=== PATIENT | male | born 1945 | race Caucasian/White ===

== ENCOUNTER → 2016-04-24 | Outpatient (REF) | payer MEDICARE, OTHER ==
[2016-04-24 13:48] LABS: CALCIUM LEVEL 8.7 MG/DL (8.8-10.2); CREATININE FOR GFR 1.49 MG/DL (0.70-1.30); GLOMERULAR FILTRATION RATE 49.9 (>49); POTASSIUM SERUM 4.4 MEQ/L (3.5-5.1)
== END ==
LOC: M LABDRAW1 09:25
PROVIDERS: ATTEND Physician Assistant Medical
DX: E11.65 Type 2 diabetes mellitus with hyperglycemia (principal); E78.00 Pure hypercholesterolemia, unspecified

== ENCOUNTER → 2016-06-14 | Outpatient (REF) | payer MEDICARE, OTHER ==
[2016-06-14 18:05] LABS: PERCENT SATURATION 17.5 % (19.7-37.4)
== END ==
LOC: M LAB REF 16:54
PROVIDERS: ATTEND Internal Medicine Nephrology
DX: D50.9 Iron deficiency anemia, unspecified (principal)

== ENCOUNTER → 2016-06-20 | Outpatient (CLI) | payer MEDICARE, OTHER ==
--- NOTE | 2016-06-20 10:56 | REP ---
Clinical: Chronic medical renal disease and possible nephrolithiasis. Technique: Real time velásquez scale ultrasound examination using curved array transducer. Findings: Bilateral kidneys are normal in reniform shape and echogenicity with increased central sinus fat consistent with chronic medical renal disease. No hydronephrosis, nephrolithiasis, cystic or renal mass lesion is appreciated. Right kidney measures 10.8 x 5.5 x 5.3 cm. Left kidney measures 12.0 x 4.9 x 5.4 cm. Evaluation of the bladder demonstrates 2 cm mobile bladder stone and normal bilateral ureteral jets. Impression: Evidence for chronic medical renal disease. No obvious nephrolithiasis or hydronephrosis. 2 cm mobile bladder stone. Signed by Naveen Vizcarra MD 06/20/2016 10:47 A
== END ==
LOC: M RAD 10:07
PROVIDERS: ATTEND Internal Medicine Nephrology
DX: N18.3 Chronic kidney disease, stage 3 (moderate) (principal); N20.0 Calculus of kidney; E11.22 Type 2 diabetes mellitus with diabetic chronic kidney disease

== ENCOUNTER 2016-07-12 10:51 | Emergency (ER) | payer MEDICARE, OTHER ==
[~2016-07-12] VITALS: Ht 180.3 cm; Wt 91.2 kg
[2016-07-12] MEDS ORDERED: SITA50TAB PO (11:16)
[2016-07-12] MEDS ORDERED: LISI-542 PO (11:16)
[2016-07-12] MEDS ORDERED: SERT50TA PO (11:16)
[2016-07-12] MEDS ORDERED: CARV6.25 PO (11:16)
[2016-07-12] MEDS ORDERED: POTASOL PO (11:16)
[2016-07-12] MEDS ORDERED: INSUHUMDS SC (11:16)
[2016-07-12] MEDS ORDERED: INSULANT SC (11:16)
[2016-07-12] MEDS ORDERED: ASPI1TAB PO (11:16)
[2016-07-12] MEDS ORDERED: ATOR1TAB18 PO (11:16)
[2016-07-12] MEDS ORDERED: VITA100037 PO (11:16)
[2016-07-12] MEDS ORDERED: NITR4TASL SL (11:16)
[2016-07-12] MEDS ORDERED: SILD25TA GT (11:16)
[2016-07-12] MEDS ORDERED: NITROGLYCERIN 0.4 MG SUBL TABLET SL PRN (11:45)
[2016-07-12] MEDS ORDERED: ASPIRIN 81 MG CHEW TABLET PO ONE (11:45)
--- NOTE | 2016-07-12 12:18 | REP ---
AP PORTABLE CHEST: 07/12/2016. Comparison: 04/22/2012. Clinical history: Chest pain. Findings: The lung de are well inflated and without infiltrate, effusion, atelectasis or mass. The heart, mediastinal and hilar contours are unchanged. Heart size borderline for this AP portable technique. The aorta is mildly tortuous at the arch but normal for age. Airway midline. There are degenerative changes throughout the thoracic spine and shoulders. Impression: 1. Borderline heart size but no acute cardiopulmonary change. Stable chest. Signed by Romain Montes MD 07/12/2016 01:46 P
[2016-07-12 12:21] VITALS: BP 120/60
[2016-07-12 12:53] LABS: BASO % 0.6 % (0.0-1.0); EOS # 0.2 K/mm3 (0.0-0.50); LARGE UNSTAINED CELL # 0.1 K/mm3 (0.0-0.4); LARGE UNSTAINED CELL % 1.8 % (0.0-4.0); LYMPH # 1.2 K/mm3 (1.5-4.5); LYMPH % 16.4 % (24.0-44.0); MEAN CORPUSCULAR HGB CONC 33.9 g/dl (32.0-36.5); MEAN CORPUSCULAR VOLUME 85.6 fl (80.0-96.0); MONO # 0.3 K/mm3 (0.0-0.8); MONO % 5.1 % (0.0-5.0); NEUTROPHILS # 4.7 K/mm3 (1.8-7.7); PLATELET COUNT, AUTOMATED 293 k/mm3 (150-450); RED CELL DISTRIBUTION WIDTH 13.7 % (11.5-14.5); WHITE BLOOD COUNT 6.5 K/mm3 (4.0-10.0)
[2016-07-12 13:08] LABS: ALBUMIN 3.5 GM/DL (3.2-5.2); ALBUMIN/GLOBULIN RATIO 0.97 (1.00-1.93); ALKALINE PHOSPHATASE 70 U/L (45-117); ALT/SGPT 31 U/L (12-78); ANION GAP 7 MEQ/L (8-16); AST/SGOT 16 U/L (15-37); BILIRUBIN,DIRECT < 0.1 MG/DL (0.0-0.2); BILIRUBIN,TOTAL 0.4 MG/DL (0.2-1.0); BLOOD UREA NITROGEN 34 MG/DL (7-18); CALCIUM LEVEL 8.8 MG/DL (8.8-10.2); CARBON DIOXIDE LEVEL 28 MEQ/L (21-32); CHLORIDE LEVEL 108 MEQ/L (98-107); CREATININE FOR GFR 1.76 MG/DL (0.70-1.30); GLOMERULAR FILTRATION RATE 41.2 (>49); GLUCOSE, FASTING 89 MG/DL (80-110); POTASSIUM SERUM 4.7 MEQ/L (3.5-5.1); SODIUM LEVEL 143 MEQ/L (136-145); TOTAL PROTEIN 7.1 GM/DL (6.4-8.2)
--- NOTE | 2016-07-12 14:03 | ECGEPIP ---
Stationary ECG Study [facility] - ED Test Date: 2016-07-12 Pat Name: SUSIE LAZARO Department: Room: - Gender: M Mammography Tech: rs : 1945 Requested By: Cory Kumar Order Number: [id number] Reading MD: Carola Cheng Measurements Intervals [place] Rate: 66 P: -5 [place]: 183 QRS: -37 QRSD: 94 T: 69 QT: 347 QTc: 365 Interpretive Statements SINUS RHYTHM INFERIOR MYOCARDIAL INFARCTION, PROBABLY OLD ANTEROSEPTAL MYOCARDIAL INFARCTION, OF INDETERMINATE AGE PRIOR 04/22/12 ANTEROSEPTAL NM Electronically Signed On 07-12-2016 13:52:45 EDT by Carola Cheng
--- NOTE | 2016-07-12 14:04 | ECGEPIP ---
Stationary ECG Study [facility] - ED Test Date: 2016-07-12 Pat Name: SUSIE LAZARO Department: Room: - Gender: M Brand Director: : 1945 Requested By: Cory Kumar Order Number: [id number] Reading MD: Carola Cheng Measurements Intervals [place] Rate: 56 P: -5 [place]: 181 QRS: -43 QRSD: 113 T: 63 QT: 380 QTc: 369 Interpretive Statements SINUS BRADYCARDIA INFERIOR MYOCARDIAL INFARCTION, PROBABLY OLD ANTEROSEPTAL MYOCARDIAL INFARCTION, OF INDETERMINATE AGE DECREASED RATE 07/12/16 11:10 Electronically Signed On 07-12-2016 14:03:56 EDT by Carola Cheng
[2016-07-12 16:59] VITALS: BP 137/75
--- NOTE | 2016-07-13 12:31 | ECGEPIP ---
Stationary ECG Study [facility] - ED Test Date: 2016-07-12 Pat Name: SUSIE LAZARO Department: Room: - Gender: M Special Needs Caregiver: livia : 1945 Requested By: Cory Kumar Order Number: [id number] Reading MD: Carola Cheng Measurements Intervals [place] Rate: 55 P: -11 [place]: 175 QRS: -42 QRSD: 105 T: 64 QT: 391 QTc: 376 Interpretive Statements SINUS BRADYCARDIA MARKED LEFT AXIS DEVIATION POSSIBLE INFERIOR MYOCARDIAL INFARCTION, PROBABLY OLD ANTEROSEPTAL MYOCARDIAL INFARCTION, OF INDETERMINATE AGE SIMILAR 07/12/16 Electronically Signed On 07-13-2016 12:31:37 EDT by Carola Cheng
== END 2016-07-12 17:20 | disposition home or self-care (01) ==
LOC: M ED 12:11
DX: I20.9 Angina pectoris, unspecified (principal); E11.9 Type 2 diabetes mellitus without complications; I12.9 Hypertensive chronic kidney disease with stage 1 through stage 4 chronic kidney disease, or unspecified chronic kidney disease; N18.9 Chronic kidney disease, unspecified; I25.2 Old myocardial infarction; Z95.5 Presence of coronary angioplasty implant and graft; Z79.899 Other long term (current) drug therapy; Z79.82 Long term (current) use of aspirin; Z79.4 Long term (current) use of insulin; Z79.84 Long term (current) use of oral hypoglycemic drugs

== ENCOUNTER → 2017-02-26 | Outpatient (REF) | payer MEDICARE, OTHER ==
[~2017-02-26] MED LIST: ASPI1TAB PO; ATOR80TA59 PO; CARV6.25 PO; INSUHUMDS SC; INSULANT SC; LISI-542 PO; NITR4TASL SL; POTASOL PO; SERT50TA PO; SILD25TA GT; SITA50TAB PO; VITA100067 PO
== END ==
LOC: M LAB REF 12:55
PROVIDERS: ATTEND Internal Medicine Nephrology
DX: N39.0 Urinary tract infection, site not specified (principal)

== ENCOUNTER → 2017-03-21 | Outpatient (REF) | payer MEDICARE, OTHER | LOC: M LAB REF 16:19 | PROVIDERS: ATTEND Physician Assistant | DX: R30.0 Dysuria (principal) ==

== ENCOUNTER 2017-05-06 07:03 | Emergency (ER) | payer MEDICARE, OTHER ==
[2017-05-06] MEDS: CEFAZOLIN SOD 1 GM in APPROPRIATE DILUENT 1 EA IV (08:09)
[2017-05-06] MEDS ORDERED: POLYSPORIN TOPICAL OINTMENT 15GM As Ordered (09:14)
== END 2017-05-06 09:35 | disposition home or self-care (01) ==
LOC: M ED 07:03
DX: S61.200A Unspecified open wound of right index finger without damage to nail, initial encounter (principal); W27.0XXA Contact with workbench tool, initial encounter; Y92.018 Other place in single-family (private) house as the place of occurrence of the external cause; E11.9 Type 2 diabetes mellitus without complications; N28.9 Disorder of kidney and ureter, unspecified; I25.2 Old myocardial infarction; I25.10 Atherosclerotic heart disease of native coronary artery without angina pectoris; M10.9 Gout, unspecified; Z95.5 Presence of coronary angioplasty implant and graft; Z79.899 Other long term (current) drug therapy; Z79.82 Long term (current) use of aspirin; Z79.4 Long term (current) use of insulin
CPT/HCPCS: J0690

== ENCOUNTER → 2017-07-27 | Outpatient (REF) | payer MEDICARE, OTHER | LOC: M LAB REF 16:56 | DX: R39.12 Poor urinary stream (principal) | CPT/HCPCS: 87086 ==

== ENCOUNTER → 2017-10-04 | Outpatient (CLI) | payer MEDICARE, OTHER | LOC: M RAD 09:19 | DX: N18.3 Chronic kidney disease, stage 3 (moderate) (principal); N40.1 Benign prostatic hyperplasia with lower urinary tract symptoms; N20.0 Calculus of kidney; R39.198 Other difficulties with micturition | CPT/HCPCS: 76775 ==

== ENCOUNTER 2019-05-23 13:18 | Inpatient (IN) | payer MEDICARE, OTHER ==
[2019-05-23] VITALS (24 sets, daily range): BP systolic 105–171; BP diastolic 55–90; O2SAT 100
[~2019-05-23] VITALS: Ht 180.3 cm; Wt 92.0 kg
[~2019-05-23 13:18] MED LIST changes: +ALLO100T PO; -ASPI1TAB PO; +ASPI81TA26 PO; +AUGM875T28 PO; +FERR325T3 PO; +SERT-141 PO; -SERT50TA PO; -SILD25TA GT; +SILD25TA PO; +lisinopriL 10 MG TAB PO SCH
[2019-05-23] MEDS ORDERED: MAGN400T3 PO (13:34)
[2019-05-23] MEDS ORDERED: TAMS1CAP17 PO (13:34)
[2019-05-23] MEDS ORDERED: ACETAMINOPHEN 500 MG TAB PO ONE (13:45)
--- NOTE | 2019-05-23 14:04 | REP ---
Clinical: Trauma. Technique: Axial noncontrast images from the thoracic inlet to the upper abdomen with coronal and sagittal re-formations. Findings: Small to moderate left pneumothorax is appreciated with very mild contralateral mediastinal shift. A very subtle nondisplaced lateral left seventh rib fracture cannot be excluded and should be correlated with mechanism of injury. The right hemithorax is well-aerated and clear. The mediastinum is essentially unremarkable and without evidence for mediastinal trauma/injury. Incidental atherosclerotic changes to the thoracic aorta and coronary arteries noted. Limited upper abdomen demonstrates small hiatal hernia and normal bilateral adrenal glands. Impression: Small/moderate left pneumothorax with very minimal contralateral mediastinal shift. Possible very subtle nondisplaced lateral left seventh rib fracture. Electronically Signed by Naveen Vizcarra MD 05/23/2019 01:55 P
--- NOTE | 2019-05-23 14:09 | REP ---
Clinical: Left shoulder trauma . Technique: Internal rotation, external rotation, and Y view. Findings: No acute fracture or dislocation. The acromioclavicular and glenohumeral joints are intact. Mild age-related degenerative changes noted. Impression: Normal age-appropriate left shoulder radiographs. Electronically Signed by Naveen Vizcarra MD 05/23/2019 02:01 P
[2019-05-23] MEDS ORDERED: BISACODYL 10 MG SUPP PR PRN (14:15)
[2019-05-23] MEDS ORDERED: LEVALBUTEROL 1.25 MG/0.5 ML CONCENTRATE NEB NEB PRN (14:15)
[2019-05-23] MEDS ORDERED: ONDANSETRON 4MG/2ML VIAL (J2405) IV ONE (14:15)
[2019-05-23] MEDS ORDERED: PERCOCET 5MG/325MG TAB PO PRN (14:15)
[2019-05-23] MEDS ORDERED: NORCO, ANEXSIA 5/325MG TABLET (HYDROcodone/ACETAMINOPHEN) PO PRN (14:15)
[2019-05-23] MEDS ORDERED: MORPHINE 4 MG/ML 1ML VIAL/SYRINGE (J2270) IV PRN (14:15)
[2019-05-23] MEDS ORDERED: ONDANSETRON 4MG/2ML VIAL (J2405) IV PRN (14:15)
[2019-05-23 14:54] LABS: BASO # 0.1 10^3/uL (0.0-0.2); BASO % 0.3 % (0.0-1.0); EOS # 0.2 10^3/uL (0.0-0.5); EOS % 1.3 % (0.0-3.0); HEMATOCRIT 40.5 % (42.0-52.0); HEMOGLOBIN 13.3 g/dl (13.5-17.5); LYMPH # 1.2 10^3/uL (1.5-5.0); LYMPH % 7.8 % (24.0-44.0); MEAN CORPUSCULAR HGB CONC 32.8 g/dl (32.0-36.5); MEAN CORPUSCULAR VOLUME 88.4 fl (80.0-96.0); MONO # 0.8 10^3/uL (0.0-0.8); MONO % 5.5 % (0.0-5.0); NEUTROPHILS # 12.4 10^3/uL (1.5-8.5); NEUTROPHILS % 83.3 % (36.0-66.0); PLATELET COUNT, AUTOMATED 302 10^3/uL (150-450); RED BLOOD COUNT 4.58 10^6/uL (4.30-6.10); WHITE BLOOD COUNT 14.9 10^3/uL (4.0-10.0)
[2019-05-23] MEDS ORDERED: KCL 20MEQ IN D5/NS 1000ML 1,000 ML IV SCH (15:00)
[2019-05-23] MEDS ORDERED: NITROGLYCERIN 0.4 MG SUBL TABLET SL SCH (15:00)
[2019-05-23] MEDS ORDERED: MIDAZOLAM INJ 2 MG/2 ML VIAL (J2250) As Ordered ONE (15:03)
[2019-05-23] MEDS ORDERED: flumazeniL 0.5 MG/5 ML VIAL As Ordered ONE (15:04)
[2019-05-23] MEDS ORDERED: LIDOCAINE 1% MDV 20ML VIAL As Ordered ONE (15:05)
[2019-05-23] MEDS ORDERED: LISI10TA4 PO (15:05)
[2019-05-23] MEDS ORDERED: SERT-138 PO (15:05)
[2019-05-23] MEDS ORDERED: AUGM875T28 PO (15:05)
[2019-05-23 15:08] LABS: PROTHROMBIN TIME 12.9 SECONDS (11.8-14.0)
[2019-05-23] MEDS ORDERED: MORPHINE 2 MG/ML 1ML VIAL (J2270) As Ordered ONE (15:13)
[2019-05-23 15:14] LABS: ALBUMIN 3.6 GM/DL (3.2-5.2); BILIRUBIN,TOTAL 0.4 MG/DL (0.2-1.0); CALCIUM LEVEL 9.1 MG/DL (8.8-10.2); CREATININE FOR GFR 1.55 MG/DL (0.70-1.30); GLOMERULAR FILTRATION RATE 47.3 (>42); POTASSIUM SERUM 5.2 MEQ/L (3.5-5.1); TOTAL PROTEIN 6.8 GM/DL (6.4-8.2)
[2019-05-23] MEDS ORDERED: GLUCAGON FOR INJ 1 MG VIAL (J1610) SC PRN (15:15)
[2019-05-23] MEDS ORDERED: GLUCOSE 4 GM CHEW TABLET PO PRN (15:15)
[2019-05-23] MEDS ORDERED: DEXTROSE 50% 50 ML SYRINGE IV PRN (15:15)
[2019-05-23] MEDS ORDERED: NS 1,000 ML IV SCH (15:45)
--- NOTE | 2019-05-23 16:01 | REP ---
Clinical: Status post chest tube. Correlation: Chest CT dated 05/23/2019 at 13 41. Findings: Chest tube overlies the left apex and no obvious residual pneumothorax is identified. The mediastinum and cardiac silhouette are normal in appearance and position. The lung de are relatively clear and without focal consolidation or effusion. Skeletal structures appear intact. Impression: 1. Chest tube overlies the left apex. No residual pneumothorax identified. Electronically Signed by Naveen Vizcarra MD 05/23/2019 03:53 P
--- NOTE | 2019-05-23 16:02 | RO ---
DATE OF PROCEDURE: 05/23/2019 PREPROCEDURE DIAGNOSIS: Traumatic pneumothorax left. POSTPROCEDURE DIAGNOSIS: Traumatic pneumothorax left. PROCEDURE: Insertion of anterior superior chest tube with moderate sedation. SURGEON: Jt Youngblood MD RADIO DIVISION OFFICER: ANESTHESIA: DESCRIPTION OF PROCEDURE: Under moderate sedation achieved with 4 mg of Versed the patient was prepped and draped in the usual sterile fashion. We also had given him 5 mg of morphine approximately 5 minutes prior to the procedure. The first intercostal space above the second rib was infiltrated with 1% lidocaine down to the pleura. An incision was made and a tunnel was created into the chest with a large gush of air emanating once getting into the chest. A #20 chest tube was placed without difficulty and secured to the chest wall with #2 Tevdek suture. Tube was connected to the Pleur-evac. The patient tolerated the procedure well, and a chest x-ray is pending.
[2019-05-23] MEDS: MAGNESIUM OXIDE 400 MG TAB (MAG-OX) PO SCH (16:03)
[2019-05-23] MEDS: ASPIRIN 81 MG ENTERIC TAB PO SCH (16:03)
[2019-05-23] MEDS: PANTOPRAZOLE 40MG TAB (PROTONIX) PO SCH (16:04)
--- NOTE | 2019-05-23 16:04 | HPEPDOC ---
General Date of Admission May 23, 2019 at 14:09 Date of Service: May 23, 2019 Chief Complaint The patient is a 73-year-old male admitted with a reason for visit of Pneumothorax. Source: Patient Exam Limitations: No limitations Timing/Duration: 4-6 hours Severity: Moderate Associated Symptoms: Shortness of breath History of Present Illness Patient is 73 years old male with past history of hypertension, CO status post stent placement in 2013, type 2 diabetes, hyperlipidemia presented hospital after mechanical fall. Patient stated he fell down because of ice on the road. After after that he developed left-sided chest pain with progressively increased shortness of breath. In ER patient was found to have Small/moderate left pneumothorax with very minimal contralateral mediastinal shift. Possible very subtle nondisplaced lateral left seventh rib fracture. Patient was brought to ICU, chest tube was placed by Dr. Youngblood. Home Medications Scheduled Allopurinol (Allopurinol) 100 Mg Tab, 100 MG PO QHS, (Reported) Amoxicillin/Potassium Clav (Augmentin 875-125 Tablet) 1 Each Tablet, 1 TAB PO BID, (Reported) FILLED 05/15/19 FOR 10 DAYS Aspirin (Aspirin EC) 81 Mg Tab, 81 MG PO DAILY, (Reported) Atorvastatin Calcium (Atorvastatin Calcium) 80 Mg Tab, 80 MG PO QHS, (Reported) Insulin Glargine (Lantus) 1 Units/0.01 Ml Susp, 43 UNITS SC DAILY, (Reported) Insulin Human Lispro (Humalog) 1 Units/0.01 Ml Inj, 1 DOSE SC AC, (Reported) PER SLIDING SCALE Lisinopril (Lisinopril) 10 Mg Tablet, 10 MG PO QHS, (Reported) Magnesium Oxide (Magnesium Oxide) 400 Mg Tablet, 400 MG PO DAILY, (Reported) Potassium Citrate/Citric Acid (Potassium Cit-Citric Acid Soln) 1 Aby Aby, 10 ML PO BID, (Reported) Sertraline HCl (Sertraline HCl) 100 Mg Tablet, 100 MG PO DAILY, (Reported) Sitagliptin (Januvia) 50 Mg Tab, 50 MG PO DAILY, (Reported) Tamsulosin Hcl (Tamsulosin HCl) 0.4 Mg Capsule, 0.4 MG PO DAILY, (Reported) Scheduled PRN Nitroglycerin (Nitrostat) 0.4 Mg Subl, 0.4 MG SL NITRO PRN for CHEST PAIN, (Reported) Sildenafil Citrate (Viagra) 25 Mg Tab, 25 MG PO DAILY PRN for ERECTILE DYSFUNCTION, (Reported) Allergies Coded Allergies: No Known Allergies (Unverified , 07/12/16) Past Medical History Medical History hypertension, CO status post stent placement in 2012, type 2 diabetes, hyperlipidemia Surgical History None Family History I personally reviewed Family History and found not pertinent Social History * Smoker: Denies Alcohol: Denies Drugs: denies A-FIB/CHADSVASC A-FIB History Current/History of A-Fib/PAF?: No Current PO Anticoag Therapy: No Review of Systems Constitutional: Denies: Chills, Fever Eyes: Denies: Pain, Vision change ENT: Denies: Head Aches Skin: Denies: Rash, Lesions Pulmonary: Reports: Dyspnea, Pleuritic Chest Pain Cardiovascular: Denies: Chest Pain, Palpitations Gastrointestinal: Denies: Nausea, Vomiting Genitourinary: Denies: Dysuria Hematologic: Denies: Bruising, Bleeding Excessively Endocrine: Denies: Polydipsia, Polyphagia Musculoskeletal: Denies: Neck Pain, Back Pain Neurological: Denies: Weakness Psych: Reports: Mood Normal Physical Examination General Exam: Positive: Alert, Cooperative Eye Exam: Positive: PERRLA, Conjunctiva & lids normal ENT Exam: Positive: Atraumatic Neck Exam: Positive: Supple; Negative: JVD Chest Exam: Positive: Diminished (over left upper lung field); Negative: Clear to auscultation Heart Exam: Positive: Rate Normal Telemetry: Positive: No significant arrhythmia Abdomen Exam: Positive: Normal bowel sounds Extremity Exam: Negative: Clubbing, Cyanosis Skin Exam: Positive: Nl turgor and temperature Neuro Exam: Positive: Normal Speech, Strength at 5/5 X4 ext, Cranial Nerves 3- 12 NL Psych Exam: Positive: Mental status NL Vital Signs Vital Signs Date Time Temp Pulse Resp B/P (MAP) Pulse Ox O2 Delivery O2 Flow Rate FiO2 05/23/19 14:33 75 159/88 (111) 98 Room Air 05/23/19 13:27 98.4 18 Laboratory Data Labs 24H Laboratory Tests 2 05/23/19 14:37: Immature Granulocyte % (Auto) 1.8, Neutrophils (%) (Auto) 83.3H, Lymphocytes (%) (Auto) 7.8L, Monocytes (%) (Auto) 5.5H, Eosinophils (%) (Auto) 1.3, Basophils (%) (Auto) 0.3, Neutrophils # (Auto) 12.4H, Lymphocytes # (Auto) 1.2L, Monocytes # (Auto) 0.8, Eosinophils # (Auto) 0.2, Basophils # (Auto) 0.1, Nucleated Red B lood Cells % (auto) 0.0, Prothrombin Time 12.9, Prothromb Time International Ratio 1.00, Anion Gap 3L, Glomerular Filtration Rate 47.3, Calcium Level 9.1, Total Bilirubin 0.4, Aspartate Amino Transf (AST/SGOT) 22, Alanine Aminotransferase (ALT/SGPT) 37, Alkaline Phosphatase 72, Total Protein 6.8, Al bumin 3.6, Albumin/Globulin Ratio 1.13 CBC/BMP Laboratory Tests 05/23/19 14:37 Assessment/Plan Patient is 73 years old male with past history of hypertension, CO status post stent placement in 2012, type 2 diabetes, hyperlipidemia presented hospital after mechanical fall. Patient stated he fell down because of ice on the road. After after that he developed left-sided chest pain with progressively increased shortness of breath. In ER patient was found to have Small/moderate left pneumothorax with very minimal contralateral mediastinal shift. Possible very subtle nondisplaced lateral left seventh rib fracture. Patient was brought to ICU, chest tube was placed by Dr. Youngblood. Problems (1) Pneumothorax Status: Acute Problem Text: Secondary to mechanical fall Chest tube was placed Dr. Youngblood follows patient Pain management (2) Diabetes mellitus Status: Chronic Problem Text: Insulin sliding scale Diabetes diet Detemir twice a day (3) Hypertension Status: Chronic Problem Text: Blood pressures under control Continue home cardioprotective medication (4) CKD (chronic kidney disease) Status: Chronic Problem Text: Stage III Creatinine at his baseline Plan / VTE VTE Prophylaxis Ordered?: Yes SILVERIO KENYON DO May 23, 2019 16:04
[2019-05-23] MEDS: SERTRALINE 100 MG TAB PO SCH (16:05)
[2019-05-23] MEDS: PERCOCET 5MG/325MG TAB PO PRN ×2 (16:05→20:22)
[2019-05-23] MEDS: TAMSULOSIN 0.4 MG CAP PO SCH (16:07)
--- NOTE | 2019-05-23 16:55 | CR ---
DATE OF CONSULTATION: 05/23/2019 The patient is seen at the request of Dr. Crane of the emergency room and the hospitalist service for pneumothorax and a possible rib fracture with shortness of breath. HISTORY OF PRESENT ILLNESS: The patient is a 73-year-old white male who was out feeding and taking care of his horses today when he slipped on ice. He fell down and hit his left chest when he felt sudden onset of shortness of breath along with severe chest pain. Prior to this, the last 2 months, he has had a dry, nonproductive cough, which has been treated with antibiotics. He states that the cough has gotten a bit better with the antibiotics but continues to return. Prior to the episode today, he did not complain of chest pain. He has had no fever, chills, or sweats. He sometimes chokes on his food and sometimes has difficulty swallowing as if he has a continued ball of phlegm in the back of his throat. He was brought to the emergency room where he was found to have a 20-30% pneumothorax. PAST MEDICAL HISTORY: Diabetes. Hypertension. Status post a myocardial infarction in 2012. Hyperlipidemia. Renal stones. Asthma. Chronic renal failure. PAST SURGERIES: Cardiac stents in 2012. Appendectomy in the remote past. 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 HABITS: Does not smoke, does not drink, and does not use illicit drugs. EXPOSURES: No dogs, birds, or cats at home and in particular, no chickens. No exposure to tuberculosis. ALLERGIES: None. FAMILY HISTORY: Not pertinent to the acute situation. REVIEW OF SYSTEMS: Constitutional: See history of the present illness. Has maintained his weight. Eyes: Without diplopia, without amaurosis fugax, without prior jaundice. Nose: With an occasional nose bleed. Mouth: Has his own teeth. Respiratory: See history of the present illness. Cardiac: See history of the present illness. Without orthopnea or paroxysmal nocturnal dyspnea. Without peripheral edema. Gastrointestinal (GI): Without nausea, vomiting, diarrhea, constipation, melena, hematochezia, hematemesis, or abdominal pain. Genitourinary (): Without hematuria, dysuria, but has had renal stones in the past. Endocrine: With diabetes. Without known thyroid disease. Neurologic: Without seizures, paresthesias, paralyses, or strokes. Psychiatric: Without pathological anxieties, depressions, or psychoses. PHYSICAL EXAMINATION: VITAL SIGNS: Temperature is 98.4, heart rate is 77, respiratory rate is 18 without the use of accessory muscles. He is 96% saturated on room air, and his blood pressure is 159/88. EYES: Pupils equal, round and reactive to light. Extraocular motor intact. Sclerae nonicteric. NOSE: Without deformity. HEAD: Normocephalic. MOUTH: Shows his mucous membranes to be pink and moist. Lips and commissures without lesions. There is no thrush. Teeth are in good repair. NECK: Neck is supple. There is no jugular venous distention. No subcutaneous emphysema. Trachea is midline. There is no thyromegaly, lymphadenopathy. He has 2+ carotid upstrokes without bruits. LUNGS: Show markedly decreased breath sounds on the left side. Percussion note is full to the diaphragm on either side. CARDIAC: Exam is without murmurs, clicks, gallops or rubs. I cannot feel his point of maximum impulse (PMI). S1, S2 are normal. ABDOMEN: Soft, nontender. Bowel sounds are positive. There is no hepatomegaly. No costovertebral angle tenderness. EXTREMITIES: Show no pretibial edema, no calf tenderness. No differential swelling of the upper extremities. SKIN: Warm, dry and perfused without cyanosis or mottling, including that of the nail beds and the knees. NEUROLOGIC: Shows II-XII intact along with gross motor and gross sensation intact. Gait is not tested. PSYCHIATRIC: Shows him to be awake and alert, oriented times three with appropriate mood and affect and conversational. His white count today is 14.9 with a hemoglobin and hematocrit of 13.3 and 40.5 respectively with a platelet count of 302. Differential shows 83% neutrophils, 7% lymphocytes, 5% monocytes. There are no immature forms. No toxic granulations. His electrolytes show marginally high potassium of 5.2. The remainder of his electrolytes are normal. BUN and creatinine are 29 and 1.55. Calcium is 9.1 with a glucose of 191. AST and ALT are normal, and the albumin is 3.6. PT/INR 12.9 and 1.0 respectively. His chest x-ray has not been done. His chest CT shows a 20-30% pneumothorax. I on first perusal of the x-ray did not see a fractured rib. X-ray is calling a "possible very subtle nondisplaced lateral left seventh rib fracture." That is an understatement. I am not at all convinced it is a rib fracture. His lung parenchyma is intact. I see no mediastinal lymphadenopathy. There is a mediastinal shift to the right. The adrenals have a normal configuration, and I do not see any liver lesions. IMPRESSION: 1. Traumatic pneumothorax. 2. Possible 7th rib fracture. 3. Increased pain needing pain control. 4. Diabetes. 5. Status post myocardial infarction with coronary artery disease, status post stenting. 6. Hypertension. 7. Chronic renal insufficiency. PLAN AND DISCUSSION: I will immediately place an anterior-superior chest tube. After doing so, we will place the tube on suction and follow him the next couple of days. I will probably end up putting him on a patient-controlled analgesia (SAND SIFTER) pump.
[2019-05-23 17:47] LABS: ABG BASE EXCESS 0.2 (-2.0-2.0); ABG HCO3 25.4 MEQ/L (22.0-26.0); ABG PARTIAL PRESSURE CO2 43.2 mmHg (35.0-45.0); ABG PARTIAL PRESSURE O2 84.2 mmHg (75.0-100.0); ABG STANDARD HCO3 24.6 MEQ/L (22.0-26.0); ABG TOTAL CO2 26.7 MEQ/L (23.0-31.0); ABG pH (ARTERIAL) 7.387 UNITS (7.350-7.450)
[2019-05-23] MEDS ORDERED: MORPHINE 10 MG/ML 1ML VIAL (J2270) IV ONE (18:15)
[2019-05-23] MEDS ORDERED: MIDAZOLAM INJ 2 MG/2 ML VIAL (J2250) IV ONE (18:15)
[2019-05-23] MEDS ORDERED: LIDOCAINE 1% MDV 20ML VIAL SC ONE (18:15)
[2019-05-23] MEDS: HumaLOG INSULIN (NovoLOG) PER UNIT SC SCH ×2 (18:16→20:20)
[2019-05-23] MEDS: LEVALBUTEROL 1.25 MG/0.5 ML CONCENTRATE NEB NEB SCH (20:12)
[2019-05-23] MEDS: LEVEMIR (INSULIN DETEMIR) 1 UNITS/0.01ML SC SCH (20:20)
[2019-05-23] MEDS: allopurinoL 100 MG TAB PO SCH (20:21)
[2019-05-23] MEDS: AUGMENTIN 875 MG TAB PO SCH (20:21)
[2019-05-23] MEDS: DOCUSATE SODIUM 100 MG CAP PO SCH (20:21)
[2019-05-23] MEDS: ATORVASTATIN 20 MG TAB PO SCH (20:21)
[2019-05-23] MEDS: HEPARIN SOD (PORCINE) 5000 UNITS/ML VIAL (J1644 PER 1000UNITS) SC SCH (20:22)
[2019-05-24] VITALS (7 sets, daily range): BP systolic 105–137; BP diastolic 58–72; O2SAT 99
[2019-05-24] MEDS: LEVALBUTEROL 1.25 MG/0.5 ML CONCENTRATE NEB NEB SCH ×4 (02:08→20:28)
[2019-05-24] MEDS: ACETAMINOPHEN TAB 650MG DOSE (2X325MG) PO PRN ×3 (04:23→22:15)
[2019-05-24 05:26] LABS: BASO % 0.2 % (0.0-1.0); EOS # 0.1 10^3/uL (0.0-0.5); EOS % 0.9 % (0.0-3.0); HEMATOCRIT 34.6 % (42.0-52.0); HEMOGLOBIN 11.4 g/dl (13.5-17.5); LYMPH # 1.2 10^3/uL (1.5-5.0); MEAN CORPUSCULAR HEMOGLOBIN 29.5 pg (27.0-33.0); MEAN CORPUSCULAR HGB CONC 32.9 g/dl (32.0-36.5); MEAN CORPUSCULAR VOLUME 89.4 fl (80.0-96.0); MONO # 0.8 10^3/uL (0.0-0.8); MONO % 7.2 % (0.0-5.0); NEUTROPHILS # 8.9 10^3/uL (1.5-8.5); NEUTROPHILS % 79.9 % (36.0-66.0); PLATELET COUNT, AUTOMATED 245 10^3/uL (150-450); RED BLOOD COUNT 3.87 10^6/uL (4.30-6.10); WHITE BLOOD COUNT 11.2 10^3/uL (4.0-10.0)
[2019-05-24 05:39] LABS: ABG BASE EXCESS 1.4 (-2.0-2.0); ABG HCO3 26.7 MEQ/L (22.0-26.0); ABG O2 SATURATION 98.1 % (95.0-99.0); ABG PARTIAL PRESSURE CO2 45.1 mmHg (35.0-45.0); ABG PARTIAL PRESSURE O2 131.9 mmHg (75.0-100.0); ABG STANDARD HCO3 25.8 MEQ/L (22.0-26.0); ABG TOTAL CO2 28.1 MEQ/L (23.0-31.0); ABG pH (ARTERIAL) 7.391 UNITS (7.350-7.450)
[2019-05-24 05:46] LABS: CALCIUM LEVEL 7.9 MG/DL (8.8-10.2); CREATININE FOR GFR 1.66 MG/DL (0.70-1.30); GLOMERULAR FILTRATION RATE 43.7 (>42); POTASSIUM SERUM 4.5 MEQ/L (3.5-5.1)
--- NOTE | 2019-05-24 08:16 | REP ---
PA and lateral chest: Comparison is the portable chest dated 05/23/2019. The left thoracotomy tube is unchanged. There is no pneumothorax or pleural fluid collection. There is focal atelectasis inferiorly in the right lung. There are lung de otherwise clear. Cardiac size is enlarged, unchanged. The mylene, mediastinum, skeletal structures are unremarkable. Impression: Minor atelectasis inferiorly in the right lung. No other interval change. Electronically Signed by Papi Paulino MD 05/24/2019 08:08 A
[2019-05-24] MEDS: DOCUSATE SODIUM 100 MG CAP PO SCH ×2 (08:32→20:07)
[2019-05-24] MEDS: PANTOPRAZOLE 40MG TAB (PROTONIX) PO SCH (08:32)
[2019-05-24] MEDS: ASPIRIN 81 MG ENTERIC TAB PO SCH (08:32)
[2019-05-24] MEDS: SERTRALINE 100 MG TAB PO SCH (08:32)
[2019-05-24] MEDS: TAMSULOSIN 0.4 MG CAP PO SCH (08:32)
[2019-05-24] MEDS: AUGMENTIN 875 MG TAB PO SCH (08:32)
[2019-05-24] MEDS: MAGNESIUM OXIDE 400 MG TAB (MAG-OX) PO SCH (08:32)
[2019-05-24] MEDS: LEVEMIR (INSULIN DETEMIR) 1 UNITS/0.01ML SC SCH ×2 (08:33→20:09)
[2019-05-24] MEDS: HEPARIN SOD (PORCINE) 5000 UNITS/ML VIAL (J1644 PER 1000UNITS) SC SCH ×2 (08:33→20:02)
[2019-05-24] MEDS: HumaLOG INSULIN (NovoLOG) PER UNIT SC SCH ×4 (08:33→20:02)
[2019-05-24] MEDS: MOM 30ML SUSPENSION UDC PO SCH (09:00)
--- NOTE | 2019-05-24 10:50 | IPNPDOC ---
Text Note Date of Service The patient was seen on 05/24/19. NOTE Subjective: No any acute events overnight. Patient denied fever, chills, nausea, vomiting. He complains of discomfort in the chest tube area Physical Examination General Exam: Positive: Alert, Cooperative Eye Exam: Positive: PERRLA, Conjunctiva & lids normal ENT Exam: Positive: Atraumatic Neck Exam: Positive: Supple; Negative: JVD Chest Exam: Positive: Diminished (over left upper lung field); chest tube in place, serosanguineous discharge on suction Negative: Clear to auscultation Heart Exam: Positive: Rate Normal Telemetry: Positive: No significant arrhythmia Abdomen Exam: Positive: Normal bowel sounds Extremity Exam: Negative: Clubbing, Cyanosis Skin Exam: Positive: Nl turgor and temperature Neuro Exam: Positive: Normal Speech, Strength at 5/5 X4 ext, Cranial Nerves 3- 12 NL Psych Exam: Positive: Mental status NL Assessment/Plan Patient is 73 years old male with past history of hypertension, [place] status post stent placement in 2012, type 2 diabetes, hyperlipidemia presented hospital after mechanical fall. Patient stated he fell down because of ice on the road. After after that he developed left-sided chest pain with progressively increased shortness of breath. In ER patient was found to have Small/moderate left pneumothorax with very minimal contralateral mediastinal shift. Possible very subtle nondisplaced lateral left seventh rib fracture. Patient was brought to ICU, chest tube was placed by Dr. Youngblood. Problems (1) Pneumothorax Secondary to mechanical fall Chest tube was placed on 05/23/19. Chest x-ray on 05/24/[address] Youngblood follows patient Pain management (2) Diabetes mellitus Insulin sliding scale Diabetes diet Detemir twice a day (3) Hypertension Blood pressures under control Continue home cardioprotective medication (4) CKD (chronic kidney disease) Stage III Creatinine at his baseline Plan / VTE VTE Prophylaxis Ordered?: Yes VS,Fishbone, I+O VS, Fishbone, I+O Laboratory Tests 05/23/19 14:37 05/24/19 05:07 Vital Signs Date Time Temp Pulse Resp B/P (MAP) Pulse Ox O2 Delivery O2 Flow Rate FiO2 05/24/19 08:00 97.2 64 14 131/63 (85) 97 Nasal Cannula 05/24/19 04:00 1.0 I&O- Last 24 Hours up to 6 AM 05/24/19 06:00 Intake Total 2250 ml Output Total 755 ml Balance 1495 ml SILVERIO KENYON DO May 24, 2019 10:50
--- NOTE | 2019-05-24 13:53 | IPN ---
DATE: 05/24/2019 Mr. Nielsen is feeling much better today, in fact his pain is almost nonexistent. I think that the pain yesterday was secondary to his lung coming away from the chest wall rather than the supposed rib fracture. His vital signs show a maximum temperature (t-max) of 98.7 with a heart rate that ranges between 67 and 68 in a sinus rhythm, respiratory rate of 16 to 18 without the use of accessory muscles, who is 99% saturated on 2 liters nasal cannula. His blood pressure is ranging between 105/61 to 131/63. His intake and output the past 24 hours has been recorded as 1530 in and 330 out for a positivity of 1200 mL. He has put out 5 mL in chest tube. He is reported as only putting out 325 mL in urine. His weight today is 91.7 compared to 89.1 kg yesterday. PHYSICAL EXAMINATION: LUNGS: He has some crackles at both bases, more on the left than the right. These occur during inspiration. There is also some expiratory wheezing. Percussion note is full to the diaphragm. CARDIAC EXAM: Shows a 2/6 systolic ejection murmur heard best at the right upper sternal border. There is no radiation. I cannot feel his point of maximum impulse (PMI). S1, S2 are normal. ABDOMEN: Soft, nontender. Bowel sounds positive. There is no hepatomegaly. No costovertebral angle tenderness. EXTREMITIES: Trace pretibial edema. No calf tenderness. No differential swelling of the upper extremities. SKIN: Warm, dry and perfused without cyanosis or mottling, including that of the nail beds and knees. NECK: Supple. There is no jugular venous distention. No subcutaneous emphysema. Trachea is midline. MOUTH: Shows his mucous membranes to be pink and moist. Lips and commissures without lesions. There is no thrush. EYES: Show his pupils to be equal and reactive. Extraocular motion intact. Sclerae anicteric. NEUROLOGIC: Shows II through XII intact with gross motor and gross sensation intact. Gait is not tested. PSYCHIATRIC: Shows him to be awake and alert, oriented times three with appropriate mood and affect and conversational. His white count today is 11.2 with a hemoglobin and hematocrit of 11.4 and 34.6, respectively and a platelet count of 245. Differential shows 79% neutrophils, 11% lymphocytes, and 7% monocytes. There are no immature forms and no toxic granulations. His electrolytes are normal with a BUN and creatinine of 32 and 1.66, however, up from 29 and 1.55. Glucose is 206 with a calcium of 7.9. His chest x-ray today shows his lung fully expanded to the chest wall. Chest tubes are in good place. The lateral film does not show any infiltrates. Costophrenic angles are sharp. IMPRESSION: 1. Traumatic pneumothorax. 2. Possible 7th rib fracture but doubtful. 3. Increased pain, resolved. 4. Diabetes. 5. Chronic renal insufficiency. 6. Coronary artery disease, status post myocardial infarction in 2013. 7. Hypertension. 8. Hyperlipidemia. PLAN/DISCUSSION: I will take his chest tube off suction today. Hopefully I will be able to pull it tomorrow and either discharge him later on in the day or on the next day. I am a little bit concerned about his lack of urine output and his rising BUN and creatinine. I will leave that to the medical service. He had a chronic cough even before this admission. When he comes back to see me, I will also ask pulmonology to evaluate his cough. It has been treated with antibiotics multiple times to no avail. He has never been a smoker and his lung parenchyma look intact without emphysematous changes. I do not see any lung masses nor do I see mediastinal or hilar lymphadenopathy. I will stop his antibiotics, which was carried over from his admission.
[2019-05-24] MEDS: allopurinoL 100 MG TAB PO SCH (20:07)
[2019-05-24] MEDS: ATORVASTATIN 20 MG TAB PO SCH (20:08)
[2019-05-24] MEDS ORDERED: lisinopriL 10 MG TAB PO SCH (21:00)
[2019-05-25] VITALS: BP 132/74
[2019-05-25] MEDS: LEVALBUTEROL 1.25 MG/0.5 ML CONCENTRATE NEB NEB SCH ×3 (02:30→13:24)
[2019-05-25 04:00] VITALS: BP 119/58
[2019-05-25 05:17] LABS: BASO % 0.3 % (0.0-1.0); EOS # 0.2 10^3/uL (0.0-0.5); EOS % 2.1 % (0.0-3.0); HEMATOCRIT 35.3 % (42.0-52.0); HEMOGLOBIN 11.4 g/dl (13.5-17.5); LYMPH # 1.3 10^3/uL (1.5-5.0); LYMPH % 15.3 % (24.0-44.0); MEAN CORPUSCULAR HEMOGLOBIN 28.9 pg (27.0-33.0); MEAN CORPUSCULAR HGB CONC 32.3 g/dl (32.0-36.5); MEAN CORPUSCULAR VOLUME 89.4 fl (80.0-96.0); MONO # 0.7 10^3/uL (0.0-0.8); MONO % 8.2 % (0.0-5.0); NEUTROPHILS # 6.3 10^3/uL (1.5-8.5); NEUTROPHILS % 73.1 % (36.0-66.0); PLATELET COUNT, AUTOMATED 228 10^3/uL (150-450); RED BLOOD COUNT 3.95 10^6/uL (4.30-6.10); WHITE BLOOD COUNT 8.6 10^3/uL (4.0-10.0)
[2019-05-25 05:38] LABS: CALCIUM LEVEL 8.3 MG/DL (8.8-10.2); CREATININE FOR GFR 1.65 MG/DL (0.70-1.30); POTASSIUM SERUM 4.3 MEQ/L (3.5-5.1)
[2019-05-25] MEDS: ACETAMINOPHEN TAB 650MG DOSE (2X325MG) PO PRN (05:52)
[2019-05-25 07:35] VITALS: BP 117/69
[2019-05-25] MEDS ORDERED: NS 1,000 ML IV SCH (08:00)
--- NOTE | 2019-05-25 08:20 | REP ---
PA and lateral chest: Comparison is 05/24. The left thoracotomy tube is unchanged. There is no pneumothorax. The focal atelectasis inferiorly in the right lung has decreased. Lung de otherwise clear. Cardiac size is enlarged, unchanged. The mylene, mediastinum, skeletal structures are unremarkable. Impression: The focal atelectasis inferiorly in the right lung has decreased. There is no other interval change. Electronically Signed by Papi Paulino MD 05/25/2019 08:11 A
[2019-05-25] MEDS: HumaLOG INSULIN (NovoLOG) PER UNIT SC SCH ×2 (08:28→12:59)
[2019-05-25] MEDS: LEVEMIR (INSULIN DETEMIR) 1 UNITS/0.01ML SC SCH (08:29)
[2019-05-25] MEDS: PANTOPRAZOLE 40MG TAB (PROTONIX) PO SCH (08:29)
[2019-05-25] MEDS: HEPARIN SOD (PORCINE) 5000 UNITS/ML VIAL (J1644 PER 1000UNITS) SC SCH (08:29)
[2019-05-25] MEDS: TAMSULOSIN 0.4 MG CAP PO SCH (08:29)
[2019-05-25] MEDS: ASPIRIN 81 MG ENTERIC TAB PO SCH (08:29)
[2019-05-25] MEDS: SERTRALINE 100 MG TAB PO SCH (08:29)
[2019-05-25] MEDS: MAGNESIUM OXIDE 400 MG TAB (MAG-OX) PO SCH (08:29)
[2019-05-25] MEDS: DOCUSATE SODIUM 100 MG CAP PO SCH (09:00)
[2019-05-25] MEDS: MOM 30ML SUSPENSION UDC PO SCH (09:00)
--- NOTE | 2019-05-25 11:21 | DSES ---
DATE OF ADMISSION: 05/23/2019 DATE OF DISCHARGE: 05/25/2019 DISCHARGE DIAGNOSES: 1. Traumatic pneumothorax left side. 2. Possible 7th rib fracture but doubtful. 3. Pain control, resolved. 4. Diabetes. 5. Chronic renal insufficiency. 6. Coronary artery disease, status post myocardial infarction in 2013. 7. Hypertension. 8. Hyperlipidemia. HOSPITAL COURSE: The patient is a 73-year-old white male who slipped on ice when taking care of his horses. He fell down and hit his left chest and felt sudden onset of shortness of breath along with severe chest pain. Prior to this, he has had a 2 month history of a dry, nonproductive cough, who has been treated with antibiotics but it has always come back. Prior to his fall on the day of admission, he did not complain of chest pain and had no fever, chills, or sweats. He does sometimes choke on his food and sometimes has difficulty swallowing. He feels that he has the sensation of phlegm in the back of his throat. He seemed to have a 25 to 30% pneumothorax on chest CT and an anterior/superior chest tube was placed under moderate sedation. The lung reexpanded to the chest wall and there was no continuing air leak. The chest tube was removed on the second hospital day. Chest x-ray was undertaken 6 hours later, which shows the lung expanded to the chest wall. He is being discharged with instructions to remove the bandage in the morning and leave it open to air. He may shower in the morning. He is being discharged on his home medications, which include: - allopurinol 100 mg at night - aspirin 81 mg daily - atorvastatin 80 mg at night - insulin glargine 43 units subcutaneously daily - Lispro per sliding scale - Lisinopril 10 mg at night - magnesium oxide 400 mg daily - nitroglycerin 0.4 mg sublingually as needed for chest pain - sertraline 100 mg daily - Januvia 50 mg daily - Tamsulosin 0.4 mg daily - Viagra 25 mg as needed He will return to see me in 1 week to 10 days with a followup chest x-ray. His discharge white count is 8.6 with a hemoglobin and hematocrit of 11.4 and 35.3. His electrolytes are normal with a discharge BUN and creatinine of 30 and 1.65, which is his baseline. His chest x-ray shows his lung fully expanded to the chest wall and costophrenic angles are sharp. There are no infiltrates. edited: 05/26/2019 0732 tkf MEGAN
[2019-05-25 11:40] VITALS: BP 132/62
[2019-05-25 12:14] LABS: CALCIUM LEVEL 7.7 MG/DL (8.8-10.2); CREATININE FOR GFR 1.67 MG/DL (0.70-1.30); GLOMERULAR FILTRATION RATE 43.4 (>42); POTASSIUM SERUM 4.4 MEQ/L (3.5-5.1)
--- NOTE | 2019-05-25 13:52 | DS.PDOC ---
Discharge Summary General Date of Admission May 23, 2019 at 14:09 Date of Discharge 05/25/19 Discharge Summary PROCEDURES PERFORMED DURING STAY: [None]. ADMITTING DIAGNOSES: Pneumothorax Diabetes mellitus Hypertension CKD (chronic kidney disease) DISCHARGE DIAGNOSES: Pneumothorax Diabetes mellitus Hypertension CKD (chronic kidney disease) COMPLICATIONS/CHIEF COMPLAINT: Pneumothorax. HISTORY OF PRESENT ILLNESS: Patient is 73 years old male with past history of hypertension, MA status post stent placement in 2012, type 2 diabetes, hyperlipidemia presented hospital after mechanical fall. Patient stated he fell down because of ice on the road. After after that he developed left-sided chest pain with progressively increased shortness of breath. In ER patient was found to have Small/moderate left pneumothorax with very minimal contralateral mediastinal shift. Possible very subtle nondisplaced lateral left seventh rib fracture. Patient was brought to ICU, chest tube was placed by Dr. Youngblood. HOSPITAL COURSE: During hospital stay the following issues addressed (1) Pneumothorax Secondary to mechanical fall Chest tube was placed Dr. Youngblood follows patient Pain management (2) Diabetes mellitus Insulin sliding scale Diabetes diet Detemir twice a day (3) Hypertension Blood pressures under control Continue home cardioprotective medication (4) CKD (chronic kidney disease) Stage III Creatinine at his baseline DISCHARGE MEDICATIONS: Please see below. ALLERGIES: Please see below. PHYSICAL EXAMINATION ON DISCHARGE General Exam: Positive: Alert, Cooperative Eye Exam: Positive: PERRLA, Conjunctiva & lids normal ENT Exam: Positive: Atraumatic Neck Exam: Positive: Supple; Negative: JVD Chest Exam: Positive: Diminished (over left upper lung field); chest tube in place, serosanguineous discharge on suction Negative: Clear to auscultation Heart Exam: Positive: Rate Normal Telemetry: Positive: No significant arrhythmia Abdomen Exam: Positive: Normal bowel sounds Extremity Exam: Negative: Clubbing, Cyanosis Skin Exam: Positive: Nl turgor and temperature Neuro Exam: Positive: Normal Speech, Strength at 5/5 X4 ext, Cranial Nerves 3- 12 NL Psych Exam: Positive: Mental status NL LABORATORY DATA: Please see below. IMAGING: PA and lateral chest: Comparison is 05/24. The left thoracotomy tube is unchanged. There is no pneumothorax. The focal atelectasis inferiorly in the right lung has decreased. Lung de otherwise clear. Cardiac size is enlarged, unchanged. The mylene, mediastinum, skeletal structures are unremarkable. Impression: The focal atelectasis inferiorly in the right lung has decreased. There is no other interval change. PROGNOSIS: Favorable ACTIVITY: [As tolerated]. DIET: Cardiac DISCHARGE PLAN: Follow-up with PCP DISPOSITION: Home DISCHARGE INSTRUCTIONS: 1. See above ITEMS TO FOLLOWUP ON ON OUTPATIENT: 1 see above DISCHARGE CONDITION: [Stable]. TIME SPENT ON DISCHARGE: Greater than 20 minutes. Vital Signs/I&Os Vital Signs Date Time Temp Pulse Resp B/P (MAP) Pulse Ox O2 Delivery O2 Flow Rate FiO2 05/25/19 11:40 99.6 72 18 132/62 (85) 96 Room Air 05/25/19 04:00 1.0 I&O- Last 24 Hours up to 6 AM 05/25/19 06:00 Intake Total 1920 ml Output Total 725 ml Balance 1195 ml Laboratory Data Labs 24H Laboratory Tests 2 05/24/19 16:43: Bedside Glucose (Misc Panel) 250H 05/24/19 19:57: Bedside Glucose (Misc Panel) 170H 05/25/19 04:31: Immature Granulocyte % (Auto) 1.0, Neutrophils (%) (Auto) 73.1H, Lymphocytes (%) (Auto) 15.3L, Monocytes (%) (Auto) 8.2H, Eosinophils (%) (Auto) 2.1, Basophils (%) (Auto) 0.3, Neutrophils # (Auto) 6.3, Lymphocytes # (Auto) 1.3L, Monocytes # (Auto) 0.7, Eosinophils # (Auto) 0.2, Basophils # (Auto) 0.0, Nucleated Red Blood Cells % (auto) 0.0, Anion Gap 4L, Glomerular Filtration Rate 44.0, Calcium Level 8.3L 05/25/19 11:39: Bedside Glucose (Misc Panel) 206H, Anion Gap 3L, Glomerular Filtration Rate 43.4, Calcium Level 7.7L CBC/BMP Laboratory Tests 05/25/19 04:31 05/25/19 11:39 FSBS Laboratory Tests Test 05/24/19 16:43 05/24/19 19:57 05/25/19 11:39 Range/Units Bedside Glucose (Misc Panel) 250 170 206 83-110 MG/DL Discharge Medications Scheduled Allopurinol (Allopurinol) 100 Mg Tab, 100 MG PO QHS, (Reported) Amoxicillin/Potassium Clav (Augmentin 875-125 Tablet) 1 Each Tablet, 1 TAB PO BID, (Reported) FILLED 05/15/19 FOR 10 DAYS Aspirin (Aspirin EC) 81 Mg Tab, 81 MG PO DAILY, (Reported) Atorvastatin Calcium (Atorvastatin Calcium) 80 Mg Tab, 80 MG PO QHS, (Reported) Insulin Glargine (Lantus) 1 Units/0.01 Ml Susp, 43 UNITS SC DAILY, (Reported) Insulin Human Lispro (Humalog) 1 Units/0.01 Ml Inj, 1 DOSE SC AC, (Reported) PER SLIDING SCALE Lisinopril (Lisinopril) 10 Mg Tablet, 10 MG PO QHS, (Reported) Magnesium Oxide (Magnesium Oxide) 400 Mg Tablet, 400 MG PO DAILY, (Reported) Potassium Citrate/Citric Acid (Potassium Cit-Citric Acid Soln) 1 Aby Aby, 10 ML PO BID, (Reported) Sertraline HCl (Sertraline HCl) 100 Mg Tablet, 100 MG PO DAILY, (Reported) Sitagliptin (Januvia) 50 Mg Tab, 50 MG PO DAILY, (Reported) Tamsulosin Hcl (Tamsulosin HCl) 0.4 Mg Capsule, 0.4 MG PO DAILY, (Reported) Scheduled PRN Nitroglycerin (Nitrostat) 0.4 Mg Subl, 0.4 MG SL NITRO PRN for CHEST PAIN, (Repo rted) Sildenafil Citrate (Viagra) 25 Mg Tab, 25 MG PO DAILY PRN for ERECTILE DY SFUNCTION, (Reported) Allergies Coded Allergies: No Known Allergies (Unverified , 07/12/16) SILVERIO KENYON DO May 25, 2019 13:52
--- NOTE | 2019-05-25 16:18 | REP ---
PA and lateral chest: Comparison is from 07:47 a.m. earlier today. The left thoracotomy tube has been removed. There is no left pneumothorax or pleural fluid collection. The left lung is otherwise clear. The right lung is clear. The cardiac size is normal. The mylene, mediastinum, skeletal structures are unremarkable. Impression: The left thoracotomy tube has been removed. There is no left pneumothorax or pleural fluid collection. Otherwise, negative PA and lateral chest. Electronically Signed by Papi Paulino MD 05/25/2019 04:09 P
--- NOTE | 2019-05-25 20:34 | ECGEPIP ---
[facility] - ED Test Date: 2019-05-23 Pat Name: SUSIE LAZARO Department: Room: [place] [address] Gender: Male [employer]ter: wai : 1945 Requested By: Carola Cheng Order Number: [id number] Reading MD: Carola Chneg Measurements Intervals [place] Rate: 66 P: 41 CO: 173 QRS: -47 QRSD: 84 T: 49 QT: 337 QTc: 355 Interpretive Statements SINUS RHYTHM LOW QRS VOLTAGE INFERIOR MYOCARDIAL INFARCTION, PROBABLY OLD ANTEROSEPTAL MYOCARDIAL INFARCTION, OF INDETERMINATE AGE INCREASED RATE 07/12/16 Electronically Signed on 05-25-2019 20:34:11 EST by Carola Cheng
== END 2019-05-25 17:08 | disposition home or self-care (01) | DRG 200 ==
LOC: M ED 13:18 → M ED INP 14:09 → M ICU 14:48
PROVIDERS: ADMIT Thoracic Surgery (Cardiothoracic Vascular Surgery); ATTEND Internal Medicine
PROC: 0W9B30Z Drainage of Left Pleural Cavity with Drainage Device, Percutaneous Approach (ICD-10-PCS; principal; 2019-05-23)
DX: S27.0XXA Traumatic pneumothorax, initial encounter (principal); S22.32XA Fracture of one rib, left side, initial encounter for closed fracture; I25.2 Old myocardial infarction; Z95.2 Presence of prosthetic heart valve; I12.9 Hypertensive chronic kidney disease with stage 1 through stage 4 chronic kidney disease, or unspecified chronic kidney disease; E11.9 Type 2 diabetes mellitus without complications; E78.5 Hyperlipidemia, unspecified; N18.3 Chronic kidney disease, stage 3 (moderate); W00.0XXA Fall on same level due to ice and snow, initial encounter; Y92.009 Unspecified place in unspecified non-institutional (private) residence as the place of occurrence of the external cause; Z79.899 Other long term (current) drug therapy; Z79.82 Long term (current) use of aspirin; Z79.4 Long term (current) use of insulin; J45.909 Unspecified asthma, uncomplicated; Z87.442 Personal history of urinary calculi

== ENCOUNTER → 2019-06-03 | Outpatient (CLI) | payer MEDICARE, OTHER ==
[~2019-06-03] MED LIST changes: +LISI10TA4 PO; +MAGN400T3 PO; +SERT-138 PO; +TAMS1CAP17 PO; -lisinopriL 10 MG TAB PO SCH
--- NOTE | 2019-06-03 18:12 | REPPI ---
CHEST, TWO VIEWS: Two views of the chest are performed and compared to prior study of 05/25/2019. There is minor fibroatelectatic change in the left lung base. There is no pneumothorax, infiltrate or pleural effusion. Heart is mildly enlarged. Mediastinal silhouette is unchanged. There are degenerative changes of the spine. IMPRESSION: No pneumothorax, pleural effusion, or acute infiltrate. Minor fibroatelectatic change left lung base. Electronically Signed by Papi Singh MD 06/03/2019 08:03 P
== END ==
LOC: M PLAIMG 15:04
PROVIDERS: ATTEND Thoracic Surgery (Cardiothoracic Vascular Surgery)
DX: I51.7 Cardiomegaly (principal); J84.10 Pulmonary fibrosis, unspecified; Z87.828 Personal history of other (healed) physical injury and trauma

== ENCOUNTER 2019-11-22 19:25 | Emergency (ER) | payer MEDICARE, OTHER ==
[~2019-11-22] VITALS: Ht 180.3 cm; Wt 92.0 kg
[2019-11-22 20:32] LABS: BASO % 0.4 % (0.0-1.0); EOS # 0.4 10^3/uL (0.0-0.5); EOS % 4.7 % (0.0-3.0); HEMATOCRIT 37.5 % (42.0-52.0); HEMOGLOBIN 12.5 g/dl (13.5-17.5); LYMPH # 1.2 10^3/uL (1.5-5.0); LYMPH % 16.1 % (24.0-44.0); MEAN CORPUSCULAR HEMOGLOBIN 29.6 pg (27.0-33.0); MEAN CORPUSCULAR HGB CONC 33.3 g/dl (32.0-36.5); MEAN CORPUSCULAR VOLUME 88.7 fl (80.0-96.0); MONO # 0.5 10^3/uL (0.0-0.8); MONO % 6.7 % (0.0-5.0); NEUTROPHILS # 5.4 10^3/uL (1.5-8.5); NEUTROPHILS % 71.7 % (36.0-66.0); PLATELET COUNT, AUTOMATED 263 10^3/uL (150-450); RED BLOOD COUNT 4.23 10^6/uL (4.30-6.10); WHITE BLOOD COUNT 7.6 10^3/uL (4.0-10.0)
[2019-11-22 21:05] LABS: CREATININE FOR GFR 1.97 MG/DL (0.70-1.30); GLOMERULAR FILTRATION RATE 35.8 (>42); POTASSIUM SERUM 4.8 MEQ/L (3.5-5.1)
[2019-11-22] MEDS ORDERED: NS 500 ML IV ONE (21:15)
[2019-11-22] MEDS ORDERED: cefTRIAXone SOD 1 GM in D5W MINI-BAG PLUS 50 ML IV ONE (21:45)
[2019-11-22] MEDS ORDERED: KEFL500C17 PO (23:09)
[2019-11-22 23:35] VITALS: BP 120/65
== END 2019-11-22 23:47 | disposition home or self-care (01) ==
LOC: M ED 19:25
DX: N39.0 Urinary tract infection, site not specified (principal); R33.9 Retention of urine, unspecified; I25.2 Old myocardial infarction; E11.9 Type 2 diabetes mellitus without complications; I10 Essential (primary) hypertension; J45.909 Unspecified asthma, uncomplicated; Z95.5 Presence of coronary angioplasty implant and graft; Z79.82 Long term (current) use of aspirin; Z79.4 Long term (current) use of insulin; Z79.899 Other long term (current) drug therapy
CPT/HCPCS: 80048; 81001; 85025; 87086; 99284; J0696

== ENCOUNTER 2020-01-06 10:10 | Emergency (ER) | payer MEDICARE, OTHER ==
[~2020-01-06] VITALS: Ht 180.3 cm; Wt 92.3 kg
[~2020-01-06 10:10] MED LIST changes: +KEFL500C17 PO
[2020-01-06 10:11] VITALS: BP 138/64
--- NOTE | 2020-01-06 10:58 | REPVR ---
PROCEDURE INFORMATION: Exam: XR Left Shoulder Exam date and time: 01/06/2020 10:35 AM Age: 74 years old Clinical indication: Injury or trauma; Other: Holding horse halter and horse pulled away; Sprain or strain; Shoulder; Left; Additional info: Fall injury TECHNIQUE: Imaging protocol: XR Left shoulder. Views: 2 or more views. COMPARISON: CR Shoulder, complete 05/23/2019 1:48 PM FINDINGS: Bones/joints: No acute fracture or dislocation is identified. There is again very mild osteophyte formation about the glenohumeral joint. Mild productive changes are again present along the greater tuberosity. Degenerative changes again involve the spine. Soft tissues: The soft tissues appear grossly unremarkable. IMPRESSION: 1. No acute fracture or dislocation identified. 2. Degenerative changes similar to 05/23/19. Electronically signed by: Bryce Bajwa On 01/06/2020 10:58:34 AM
== END 2020-01-06 11:18 | disposition home or self-care (01) ==
LOC: M ED 10:10
DX: M25.512 Pain in left shoulder (principal); M25.712 Osteophyte, left shoulder; Z79.82 Long term (current) use of aspirin; Z79.4 Long term (current) use of insulin; Z79.899 Other long term (current) drug therapy

== ENCOUNTER → 2020-02-14 | Outpatient (CLI) | payer MEDICARE, OTHER ==
--- NOTE | 2020-02-14 14:45 | REP ---
INDICATION: ANKLE PAIN. COMPARISON: None. TECHNIQUE: Only AP and lateral views were obtained. A trauma series consists of four views. FINDINGS: No gross fracture or destructive osseous lesion. The mortise is intact. Smoothly marginated well corticated ossific densities are seen distal to the medial malleolus. These are likely the sequela of old trauma. There are degenerative changes. There is a plantar calcaneal heel spur and a large retrocalcaneal heel spur. The bones are somewhat demineralized. There is evidence of lateral soft tissue swelling.. IMPRESSION: 1. Chronic changes and soft tissue swelling as described above. 2. A trauma series consists of four views. This limited two-view examination cannot rule out a fracture. <Electronically signed by Talib Ruiz > 02/14/20 [id number]
== END ==
LOC: M WUC 13:12
PROVIDERS: ATTEND Physician Assistant
DX: M25.571 Pain in right ankle and joints of right foot (principal); M79.89 Other specified soft tissue disorders; M19.071 Primary osteoarthritis, right ankle and foot

== ENCOUNTER → 2020-06-29 | Outpatient (CLI) | payer MEDICARE, OTHER ==
[~2020-06-29] MED LIST changes: -LISI-542 PO; +LISI-898 PO; +LISI10TA22 PO; -LISI10TA4 PO
--- NOTE | 2020-06-29 11:20 | REP ---
INDICATION: RENAL COLIC COMPARISON: 10/04/2017 TECHNIQUE: Real time velásquez scale ultrasound examination using curved array transducer. FINDINGS: Bilateral kidneys are normal in reniform shape with increased central sinus fat and cortical thinning suggesting medical renal disease. No hydronephrosis, nephrolithiasis, cystic or renal mass lesion noted. Right kidney measures 10.9 x 5.2 x 4.6 cm. Left kidney measures 12.2 x 4.1 x 5.5 cm. The bladder is grossly unremarkable. IMPRESSION: Findings consistent with chronic medical renal disease. <Electronically signed by Naveen Vizcarra > 06/29/20 1116
== END ==
LOC: M RAD 10:45
PROVIDERS: ATTEND Internal Medicine Nephrology
DX: N18.32 Chronic kidney disease, stage 3b (principal); I12.9 Hypertensive chronic kidney disease with stage 1 through stage 4 chronic kidney disease, or unspecified chronic kidney disease; Z87.442 Personal history of urinary calculi

== ENCOUNTER → 2020-09-16 | Outpatient (CLI) | payer OTHER ==
--- NOTE | 2020-09-20 15:40 | SLEEPCENT ---
NOCTURNAL POLYSOMNOGRAPHY DATE: 09/16/2020 ORDERED BY: Dr. Brumfield at the [place]. Nocturnal polysomnography was performed for evaluation of sleep physiology. 7 hours and 46 minutes of data were reviewed. There were 381 minutes of sleep identified. Sleep latency was short at 8 minutes. REM latency was also short at 26 minutes. Sleep architecture showed fragmentation. There were 4 REM cycles appreciated. Overall sleep efficiency 83.6%. The electrocardiogram showed a sinus rhythm with an average heart rate of 60 beats per minute. EEG showed reasonably normal waveforms for awake and sleep. There were 283 respiratory events identified of 10 seconds in duration or greater for an apnea/hypopnea index of 44.6. The events were primarily obstructive, not exclusive sleep stage, more frequent but not exclusive to the supine posture. Arousals from respiratory events occurred 29.1 times per hour. Oxygen desaturations were seen into the 70s. There was some activity noted in the limb leads, but limb movement arousals were few. IMPRESSION: Severe obstructive sleep apnea syndrome (G47.33), apnea/hypopnea index 44.6. RECOMMENDATION: The patient should be encouraged to return to [facility] for [facility]. In the interim, alcohol and sedative avoidance should be practiced and caution exercised during the operation of motor vehicles.
== END ==
LOC: M SLEEP 20:13
PROVIDERS: ATTEND Internal Medicine
DX: G47.33 Obstructive sleep apnea (adult) (pediatric) (principal)

== ENCOUNTER → 2020-11-19 | Outpatient (CLI) | payer OTHER ==
--- NOTE | 2020-11-28 17:57 | SLEEPCENT ---
DATE: 11/19/2020 ORDERED BY: Dr. Brumfield CPAP TITRATION Nocturnal polysomnography was performed for the titration of pressure therapy in this patient with severe obstructive sleep apnea syndrome. For testing the patient was fit with a [employer]Med Airfit full face mask of medium size, 4 cm of water pressure were applied to the circuit, and the lights were extinguished. Seven hours and 14 minutes of data were reviewed. There were 337.5 minutes of sleep identified. Sleep latency was short at 5.5 minutes. REM latency was short at 36.5 minutes. Sleep architecture was good with 5 REM cycles. Overall sleep efficiency was 80%. The electrocardiogram showed a sinus rhythm with an average heart rate of 60 beats per minute. EEG showed normal waveforms for wake and sleep. Respiratory events were best palliated with CPAP at a pressure of +7. Higher pressures were attempted and bilevel therapy was tried for a time. In end analysis a CPAP of 7 was best. There was some mild limb activity noted and remaining measures of sleep physiology were normal. IMPRESSION: Obstructive sleep apnea syndrome (G47.33). RECOMMENDATION: Nightly use of pressure therapy 7 cm of water.
== END ==
LOC: M SLEEP 20:01
PROVIDERS: ATTEND Internal Medicine
DX: G47.33 Obstructive sleep apnea (adult) (pediatric) (principal)

== ENCOUNTER → 2021-08-17 | Outpatient (CLI) | payer MEDICARE, OTHER ==
[~2021-08-17] MED LIST changes: -LISI-898 PO; +LISI5TAB11 PO; -MAGN400T3 PO; +MAGN400T33 PO
== END ==
LOC: M RAD 06:59
PROVIDERS: ATTEND Nurse Practitioner Family
DX: N18.31 Chronic kidney disease, stage 3a (principal); Z87.442 Personal history of urinary calculi; I70.0 Atherosclerosis of aorta

== ENCOUNTER 2021-11-01 15:27 | Emergency (ER) | payer MEDICARE, OTHER ==
[~2021-11-01] VITALS: Ht 180.3 cm; Wt 91.4 kg
[2021-11-01] MEDS ORDERED: VITA100093 (15:36)
[2021-11-01] MEDS ORDERED: ACET32TAB PO (15:39)
[2021-11-01] MEDS ORDERED: IBUPROFEN 600MG TAB PO ONE (17:15)
[2021-11-01] MEDS ORDERED: methylPREDNISolone 125MG 2ML VIAL IV ONE (17:15)
[2021-11-01 17:35] LABS: BASO % 0.2 % (0.0-1.0); EOS # 0.1 10^3/uL (0.0-0.5); EOS % 1.5 % (0.0-3.0); HEMATOCRIT 37.5 % (42.0-52.0); HEMOGLOBIN 12.3 g/dl (13.5-17.5); LYMPH # 0.4 10^3/uL (1.5-5.0); LYMPH % 8.2 % (24.0-44.0); MEAN CORPUSCULAR HEMOGLOBIN 29.6 pg (27.0-33.0); MEAN CORPUSCULAR HGB CONC 32.8 g/dl (32.0-36.5); MEAN CORPUSCULAR VOLUME 90.1 fl (80.0-96.0); MONO # 0.5 10^3/uL (0.0-0.8); MONO % 10.5 % (2.0-8.0); NEUTROPHILS # 3.7 10^3/uL (1.5-8.5); PLATELET COUNT, AUTOMATED 225 10^3/uL (150-450); RED BLOOD COUNT 4.16 10^6/uL (4.30-6.10); WHITE BLOOD COUNT 4.7 10^3/uL (4.0-10.0)
[2021-11-01 18:07] LABS: ALBUMIN 3.6 GM/DL (3.2-5.2); BILIRUBIN,DIRECT 0.1 MG/DL (0.0-0.2); BILIRUBIN,TOTAL 0.4 MG/DL (0.2-1.0); CREATININE FOR GFR 1.75 MG/DL (0.70-1.30); GLOMERULAR FILTRATION RATE 40.8 (>42); POTASSIUM SERUM 4.5 MEQ/L (3.5-5.1); THYROID STIMULATING HORMONE 1.74 uIU/ML (0.358-3.740); THYROXINE (T4) 6.5 UG/DL (4.5-12.0); TOTAL PROTEIN 7.4 GM/DL (6.4-8.2)
[2021-11-01 18:15] LABS: CK-MB VALUE MASS < 1.0 NG/ML (<3.6); CPK CREATINE PHOSPHOKINASE 132 U/L (39-308); MB/CK RELATIVE INDEX 0.76 (< OR =4)
[2021-11-01 19:09] LABS: CK-MB VALUE MASS 1.6 NG/ML (<3.6); MB/CK RELATIVE INDEX 1.26 (< OR =4)
[2021-11-01 21:44] LABS: CK-MB VALUE MASS < 1.0 NG/ML (<3.6); CPK CREATINE PHOSPHOKINASE 123 U/L (39-308); MB/CK RELATIVE INDEX 0.81 (< OR =4)
[2021-11-01] MEDS ORDERED: SILD50TA2 PO (22:38)
[2021-11-01] MEDS ORDERED: VITA100093 PO (22:38)
[2021-11-01] MEDS ORDERED: ACET-907 PO (22:38)
[2021-11-01] MEDS ORDERED: HOME MED LIST COMPLETE! XX SCH (22:40)
[2021-11-01 23:00] VITALS: BP 127/61
[2021-11-01] MEDS ORDERED: PRED10TA2 PO (23:01)
[2021-11-02] MEDS ORDERED: NIRMATRELVIR/RITONAVIR (RENAL) CO-PACK (EUA) PO SCH ×2 (09:00)
== END 2021-11-01 23:27 | disposition home or self-care (01) ==
LOC: M ED 15:27
DX: U07.1 COVID-19 (principal); I51.7 Cardiomegaly; R91.8 Other nonspecific abnormal finding of lung field; I25.2 Old myocardial infarction; E11.9 Type 2 diabetes mellitus without complications; I10 Essential (primary) hypertension; J45.909 Unspecified asthma, uncomplicated; E78.5 Hyperlipidemia, unspecified; Z95.5 Presence of coronary angioplasty implant and graft; F32.9 Major depressive disorder, single episode, unspecified; Z79.82 Long term (current) use of aspirin; Z79.4 Long term (current) use of insulin; Z79.899 Other long term (current) drug therapy
CPT/HCPCS: 71046; 80048; 80076; 82550; 82553; 83605; 83880; 84145; 84436; 84443; 84484; 85025; 87040; 87070; 87077; 87205; 87486; 87581; 87633; 87798; 93005; 93041; 94760; 96374; 99285; J2930

== ENCOUNTER → 2022-07-27 | Outpatient (CLI) | payer MEDICARE, OTHER ==
[~2022-07-27] MED LIST changes: +ACET-907 PO; +ACET32TAB PO; +PRED10TA2 PO; +SILD50TA2 PO; +VITA100093; +VITA100093 PO
== END ==
LOC: M PLARAD 09:09
PROVIDERS: ATTEND Student in an Organized Health Care Education/Training Program
DX: R42 Dizziness and giddiness (principal); R90.0 Intracranial space-occupying lesion found on diagnostic imaging of central nervous system

== ENCOUNTER 2022-09-15 20:22 | Emergency (ER) | payer MEDICARE, OTHER ==
[~2022-09-15] VITALS: Ht 180.3 cm; Wt 93.9 kg
[2022-09-15 20:24] VITALS: TEMP 97.5
[2022-09-15 21:40] LABS: BASO % 0.3 % (0.0-1.0); EOS # 0.2 10^3/uL (0.0-0.5); EOS % 1.8 % (0.0-3.0); HEMATOCRIT 35.6 % (42.0-52.0); HEMOGLOBIN 11.6 g/dl (13.5-17.5); LYMPH # 1.3 10^3/uL (1.5-5.0); LYMPH % 14.1 % (24.0-44.0); MEAN CORPUSCULAR HEMOGLOBIN 29.3 pg (27.0-33.0); MEAN CORPUSCULAR HGB CONC 32.6 g/dl (32.0-36.5); MEAN CORPUSCULAR VOLUME 89.9 fl (80.0-96.0); MONO # 0.7 10^3/uL (0.0-0.8); NEUTROPHILS # 6.8 10^3/uL (1.5-8.5); NEUTROPHILS % 75.4 % (36.0-66.0); PLATELET COUNT, AUTOMATED 275 10^3/uL (150-450); RED BLOOD COUNT 3.96 10^6/uL (4.30-6.10)
[2022-09-15 21:54] LABS: ERYTHROCYTE SEDIMENTATION RATE 38 mm/hr (0-20)
[2022-09-15 22:08] LABS: C REACTIVE PROTEIN QUANTITATIV 1.9 MG/DL (<1.0)
[2022-09-15 22:09] LABS: CALCIUM LEVEL 9.4 MG/DL (8.3-10.6); CREATININE FOR GFR 1.77 MG/DL (0.70-1.30); GLOMERULAR FILTRATION RATE 40.1 (>42); POTASSIUM SERUM 5.2 MMOL/L (3.5-5.1)
[2022-09-15] MEDS ORDERED: BOOSTRIX VACCINE (TETANUS/DIPHTH/ACEL. PERTUSSIS) 0.5ML SYR IM.IMMUN ONE (23:55)
[2022-09-16 01:53] VITALS: BP 133/64; O2SAT 96
== END 2022-09-16 01:54 | disposition home or self-care (01) ==
LOC: M ED 20:22
DX: S81.801A Unspecified open wound, right lower leg, initial encounter (principal); W22.8XXA Striking against or struck by other objects, initial encounter; Y92.009 Unspecified place in unspecified non-institutional (private) residence as the place of occurrence of the external cause; I25.2 Old myocardial infarction; I25.10 Atherosclerotic heart disease of native coronary artery without angina pectoris; E11.9 Type 2 diabetes mellitus without complications; E78.5 Hyperlipidemia, unspecified; N18.30 Chronic kidney disease, stage 3 unspecified; N40.0 Benign prostatic hyperplasia without lower urinary tract symptoms; Z87.442 Personal history of urinary calculi; Z95.5 Presence of coronary angioplasty implant and graft; Z79.82 Long term (current) use of aspirin; Z79.4 Long term (current) use of insulin; Z79.899 Other long term (current) drug therapy

== ENCOUNTER → 2022-11-16 | Outpatient (CLI) | payer MEDICARE, OTHER | LOC: M RAD 16:53 | PROVIDERS: ATTEND Student in an Organized Health Care Education/Training Program | DX: I65.23 Occlusion and stenosis of bilateral carotid arteries (principal); R42 Dizziness and giddiness; R90.89 Other abnormal findings on diagnostic imaging of central nervous system ==

== ENCOUNTER 2023-01-09 23:13 | Emergency (ER) | payer MEDICARE, OTHER ==
[~2023-01-09] VITALS: Ht 180.3 cm; Wt 94.1 kg
[2023-01-10 05:30] VITALS: BP 136/81; TEMP 98.2
[2023-01-10] MEDS ORDERED: ALBUTEROL 90 MCG/ACT 8GM HFA INHALER INH ONE (05:40)
[2023-01-10] MEDS ORDERED: VENTAER INH (05:45)
[2023-01-10 05:58] VITALS: O2SAT 97
== END 2023-01-10 06:11 | disposition home or self-care (01) ==
LOC: M ED 23:13
DX: J06.9 Acute upper respiratory infection, unspecified (principal); J98.01 Acute bronchospasm; E11.9 Type 2 diabetes mellitus without complications; I10 Essential (primary) hypertension; E78.5 Hyperlipidemia, unspecified; G47.33 Obstructive sleep apnea (adult) (pediatric); Z86.79 Personal history of other diseases of the circulatory system

== ENCOUNTER 2023-07-14 17:30 | Emergency (ER) | payer MEDICARE, OTHER ==
[~2023-07-14] VITALS: Ht 180.3 cm; Wt 90.9 kg
[~2023-07-14 17:30] MED LIST changes: +VENTAER INH
[2023-07-14 19:35] VITALS: BP 136/68; TEMP 97.7; O2SAT 97
== END 2023-07-14 19:38 | disposition home or self-care (01) ==
LOC: M ED 17:30
DX: S93.601A Unspecified sprain of right foot, initial encounter (principal); X50.0XXA Overexertion from strenuous movement or load, initial encounter; I25.2 Old myocardial infarction; E11.9 Type 2 diabetes mellitus without complications; I10 Essential (primary) hypertension; E78.5 Hyperlipidemia, unspecified; J45.909 Unspecified asthma, uncomplicated; G47.33 Obstructive sleep apnea (adult) (pediatric); K21.9 Gastro-esophageal reflux disease without esophagitis; Z87.442 Personal history of urinary calculi; Y92.830 Public park as the place of occurrence of the external cause; Y93.9 Activity, unspecified; Y99.9 Unspecified external cause status; Z79.52 Long term (current) use of systemic steroids; Z79.02 Long term (current) use of antithrombotics/antiplatelets; Z79.82 Long term (current) use of aspirin; Z79.811 Long term (current) use of aromatase inhibitors; Z79.899 Other long term (current) drug therapy

== ENCOUNTER → 2024-04-14 | Outpatient (CLI) | payer MEDICARE, OTHER | LOC: M CARPUL 09:04 | PROVIDERS: ATTEND Registered Nurse | DX: I50.22 Chronic systolic (congestive) heart failure (principal); I35.0 Nonrheumatic aortic (valve) stenosis; I36.1 Nonrheumatic tricuspid (valve) insufficiency; I51.7 Cardiomegaly ==

== ENCOUNTER 2024-08-16 14:07 | Inpatient (IN) | payer MEDICARE, OTHER ==
[~2024-08-16] VITALS: Ht 180.3 cm; Wt 84.8 kg
[2024-08-16 14:58] LABS: BASO # 0.1 10^3/uL (0.0-0.2); BASO % 0.7 % (0.0-1.0); EOS # 0.4 10^3/uL (0.0-0.5); EOS % 3.9 % (0.0-3.0); HEMATOCRIT 41.4 % (42.0-52.0); HEMOGLOBIN 13.8 g/dl (13.5-17.5); LYMPH # 1.9 10^3/uL (1.5-5.0); LYMPH % 20.3 % (24.0-44.0); MEAN CORPUSCULAR HEMOGLOBIN 29.6 pg (27.0-33.0); MEAN CORPUSCULAR HGB CONC 33.3 g/dl (32.0-36.5); MEAN CORPUSCULAR VOLUME 88.8 fl (80.0-96.0); MONO # 0.8 10^3/uL (0.0-0.8); MONO % 8.8 % (2.0-8.0); NEUTROPHILS # 6.2 10^3/uL (1.5-8.5); NEUTROPHILS % 65.9 % (36.0-66.0); PLATELET COUNT, AUTOMATED 299 10^3/uL (150-450); RED BLOOD COUNT 4.66 10^6/uL (4.30-6.10); WHITE BLOOD COUNT 9.4 10^3/uL (4.0-10.0)
[2024-08-16 15:31] LABS: INR 0.97; PARTIAL THROMBOPLASTIN TIME 24.2 SECONDS (24.8-34.2); PROTHROMBIN TIME 13.2 SECONDS (12.5-14.5)
[2024-08-16 15:37] LABS: CALCIUM LEVEL 9.8 MG/DL (8.3-10.6); CREATININE FOR GFR 1.61 MG/DL (0.70-1.30); GLOMERULAR FILTRATION RATE 44.1 (>42); POTASSIUM SERUM 4.4 MMOL/L (3.5-5.1)
[2024-08-16] MEDS ORDERED: ISOVUE-370 76% 100ML VIAL As Ordered ONE (15:50)
[2024-08-16] MEDS ORDERED: ALBU8.5H INH (16:46)
[2024-08-16] MEDS ORDERED: POTA15TA PO (16:46)
[2024-08-16] MEDS ORDERED: JARD1TAB3 PO (16:46)
[2024-08-16] MEDS ORDERED: HOME MED LIST COMPLETE! XX SCH (16:50)
[2024-08-16] MEDS ORDERED: PROHANCE 279.3MG/ML 5ML VIAL As Ordered ONE (16:54)
[2024-08-16] MEDS ORDERED: PROHANCE 279.3MG/ML 15ML VIAL As Ordered ONE (16:55)
[2024-08-16] MEDS: ACETAMINOPHEN 325 MG TAB PO ONE (18:37)
[2024-08-16] MEDS: NS (Normal Saline) 0.9% 1,000 ML IV SCH (21:54)
[2024-08-16] MEDS: ATORVASTATIN 20 MG TAB PO SCH (21:54)
[2024-08-16 22:38] VITALS: BP 190/88; TEMP 97.4; O2SAT 95
[2024-08-16 23:54] LABS: BASO % 0.4 % (0.0-1.0); EOS # 0.3 10^3/uL (0.0-0.5); EOS % 3.5 % (0.0-3.0); HEMATOCRIT 40.2 % (42.0-52.0); HEMOGLOBIN 13.3 g/dl (13.5-17.5); LYMPH # 1.1 10^3/uL (1.5-5.0); LYMPH % 13.8 % (24.0-44.0); MEAN CORPUSCULAR HEMOGLOBIN 29.8 pg (27.0-33.0); MEAN CORPUSCULAR HGB CONC 33.1 g/dl (32.0-36.5); MEAN CORPUSCULAR VOLUME 89.9 fl (80.0-96.0); MONO # 0.6 10^3/uL (0.0-0.8); MONO % 7.3 % (2.0-8.0); NEUTROPHILS # 6.1 10^3/uL (1.5-8.5); NEUTROPHILS % 74.8 % (36.0-66.0); PLATELET COUNT, AUTOMATED 258 10^3/uL (150-450); RED BLOOD COUNT 4.47 10^6/uL (4.30-6.10); WHITE BLOOD COUNT 8.1 10^3/uL (4.0-10.0)
[2024-08-17] VITALS (13 sets, daily range): BP systolic 159–200; BP diastolic 76–94; TEMP 97.6–99.3; O2SAT 92–98
[2024-08-17 00:20] LABS: HEMOGLOBIN A1c 7.4 % (4.0-6.0)
[2024-08-17 00:24] LABS: ALBUMIN 3.6 G/DL (3.2-5.2); BILIRUBIN,DIRECT 0.2 MG/DL (<0.4); BILIRUBIN,TOTAL 0.5 MG/DL (0.3-1.2); CHOLESTEROL RISK RATIO 3.04 (<5); CK-MB VALUE MASS 2.7 NG/ML (<3.6); CREATININE FOR GFR 1.44 MG/DL (0.70-1.30); GLOMERULAR FILTRATION RATE 50.4 (>42); HDL CHOLESTEROL 38.1 MG/DL (>40); LDL CHOLESTEROL 63.5 MG/DL (<100); NON-HDL-C 77.9 MG/DL; POTASSIUM SERUM 4.4 MMOL/L (3.5-5.1); TOTAL PROTEIN 6.6 G/DL (5.7-8.2)
[2024-08-17 00:25] LABS: MB/CK RELATIVE INDEX 1.64 (< OR =4)
[2024-08-17 00:26] LABS: PARTIAL THROMBOPLASTIN TIME 24.7 SECONDS (24.8-34.2); PROTHROMBIN TIME 13.5 SECONDS (12.5-14.5)
[2024-08-17] MEDS ORDERED: ALBUTEROL 90 MCG/ACT 8GM HFA INHALER INH PRN (07:15)
[2024-08-17] MEDS ORDERED: NITROGLYCERIN 0.4MG SUBL TABLET SL PRN (07:15)
[2024-08-17] MEDS ORDERED: GLUCAGON INJ 1MG VIAL SC PRN (07:20)
[2024-08-17] MEDS ORDERED: GLUCOSE 4 GM CHEW PO PRN (07:20)
[2024-08-17] MEDS ORDERED: DEXTROSE 50% 50ML SYRINGE IV PRN (07:20)
[2024-08-17] MEDS: INSULIN LISPRO (NovoLOG) PER UNIT SC SCH ×3 (07:30→20:33)
[2024-08-17] MEDS: SITagliptin 50 MG TAB PO SCH (08:49)
[2024-08-17] MEDS: ASPIRIN 81MG CHEW TABLET PO SCH (08:49)
[2024-08-17] MEDS: LanTUS (INSULIN GLARGINE INJ) 1 UNITS/0.01 ML SC SCH (08:50)
[2024-08-17] MEDS: HEPARIN SOD 5000UNITS/ML 1ML VIAL/SYRINGE SQ SCH (08:50)
[2024-08-17] MEDS ORDERED: ASPIRIN 81MG CHEW TABLET PO SCH (09:00)
[2024-08-17] MEDS: POTASSIUM CHLORIDE 10MEQ SR TABLET PO SCH (12:41)
[2024-08-17] MEDS: ACETAMINOPHEN 500 MG TAB PO PRN (13:36)
[2024-08-17] MEDS: CLOPIDOGREL 75 MG TAB PO SCH (13:37)
[2024-08-17] MEDS: LABETALOL 100MG/20ML VIAL IV ONE (19:55)
[2024-08-17] MEDS: allopurinoL 100 MG TAB PO SCH (20:34)
[2024-08-17] MEDS: TAMSULOSIN 0.4 MG CAP PO SCH (20:34)
[2024-08-17] MEDS ORDERED: LABETALOL 100MG/20ML VIAL IV PRN (22:25)
[2024-08-18 04:23] VITALS: BP 152/90; TEMP 98.2; O2SAT 94
[2024-08-18 08:00] VITALS: BP 153/74; TEMP 98.7; O2SAT 96
[2024-08-18 08:04] LABS: HEMATOCRIT 43.7 % (42.0-52.0); HEMOGLOBIN 14.4 g/dl (13.5-17.5); MEAN CORPUSCULAR HEMOGLOBIN 29.6 pg (27.0-33.0); MEAN CORPUSCULAR VOLUME 89.7 fl (80.0-96.0); PLATELET COUNT, AUTOMATED 287 10^3/uL (150-450); RED BLOOD COUNT 4.87 10^6/uL (4.30-6.10); WHITE BLOOD COUNT 8.1 10^3/uL (4.0-10.0)
[2024-08-18 08:31] LABS: CALCIUM LEVEL 9.2 MG/DL (8.3-10.6); CREATININE FOR GFR 1.31 MG/DL (0.70-1.30); GLOMERULAR FILTRATION RATE 56.4 (>42); POTASSIUM SERUM 4.4 MMOL/L (3.5-5.1)
[2024-08-18] MEDS: VITAMIN D 1,000 INTERNATIONAL UNITS TABLET PO SCH (10:32)
[2024-08-18] MEDS: POTASSIUM CITRATE 1080MG (10MEQ) TAB PO SCH (10:53)
[2024-08-18 12:00] VITALS: BP 173/79; TEMP 99; O2SAT 96
[2024-08-18] MEDS: amLODIPine 5 MG TAB PO SCH (12:19)
[2024-08-18 16:00] VITALS: BP 129/61; TEMP 99.1; O2SAT 93
[2024-08-18 20:02] VITALS: BP 165/73; TEMP 97.9; O2SAT 93
[2024-08-19 04:06] VITALS: BP 121/67; TEMP 97.1; O2SAT 94
[2024-08-19 05:17] LABS: HEMATOCRIT 39.6 % (42.0-52.0); MEAN CORPUSCULAR HEMOGLOBIN 29.1 pg (27.0-33.0); MEAN CORPUSCULAR HGB CONC 32.8 g/dl (32.0-36.5); MEAN CORPUSCULAR VOLUME 88.6 fl (80.0-96.0); PLATELET COUNT, AUTOMATED 248 10^3/uL (150-450); RED BLOOD COUNT 4.47 10^6/uL (4.30-6.10); WHITE BLOOD COUNT 6.8 10^3/uL (4.0-10.0)
[2024-08-19 05:42] LABS: CALCIUM LEVEL 8.9 MG/DL (8.3-10.6); CREATININE FOR GFR 1.38 MG/DL (0.70-1.30); MAGNESIUM LEVEL 1.8 MG/DL (1.8-2.4); POTASSIUM SERUM 4.2 MMOL/L (3.5-5.1)
[2024-08-19 07:52] VITALS: BP 131/62; TEMP 98; O2SAT 96
[2024-08-19 08:18] VITALS: BP 132/62
[2024-08-19] MEDS ORDERED: AMLO1TAB24 PO (10:19)
[2024-08-19] MEDS ORDERED: CLOP75TA2 PO (10:19)
== END 2024-08-19 14:06 | disposition home health service (06) | DRG 65 ==
LOC: M ED 14:07 → M ED INP 20:35 → M PCU 22:23
PROVIDERS: ADMIT Student in an Organized Health Care Education/Training Program; ATTEND Internal Medicine
DX: I63.532 Cerebral infarction due to unspecified occlusion or stenosis of left posterior cerebral artery (principal); I50.32 Chronic diastolic (congestive) heart failure; J44.9 Chronic obstructive pulmonary disease, unspecified; I11.0 Hypertensive heart disease with heart failure; E11.9 Type 2 diabetes mellitus without complications; G93.89 Other specified disorders of brain; E78.5 Hyperlipidemia, unspecified; I25.2 Old myocardial infarction; I25.10 Atherosclerotic heart disease of native coronary artery without angina pectoris; N40.0 Benign prostatic hyperplasia without lower urinary tract symptoms; Z95.5 Presence of coronary angioplasty implant and graft; G47.33 Obstructive sleep apnea (adult) (pediatric); M10.9 Gout, unspecified; I69.398 Other sequelae of cerebral infarction; H53.469 Homonymous bilateral field defects, unspecified side; Z95.2 Presence of prosthetic heart valve; Z79.899 Other long term (current) drug therapy; Z79.82 Long term (current) use of aspirin; Z79.4 Long term (current) use of insulin; Z66 Do not resuscitate; R91.1 Solitary pulmonary nodule; Z85.038 Personal history of other malignant neoplasm of large intestine

== ENCOUNTER → 2024-08-27 | Outpatient (CLI) | payer MEDICARE, OTHER ==
[~2024-08-27] MED LIST changes: +ALBU8.5H INH; +AMLO1TAB24 PO; +CLOP75TA2 PO; +JARD1TAB3 PO; +POTA15TA PO
== END ==
LOC: M EKG 13:28
PROVIDERS: ATTEND Registered Nurse
DX: I44.4 Left anterior fascicular block (principal); I45.10 Unspecified right bundle-branch block; Z86.73 Personal history of transient ischemic attack (TIA), and cerebral infarction without residual deficits

== ENCOUNTER → 2024-12-17 | Outpatient (CLI) | payer MEDICARE, OTHER | LOC: M RAD 15:01 | PROVIDERS: ATTEND Internal Medicine | DX: E04.1 Nontoxic single thyroid nodule (principal) ==

== ENCOUNTER → 2025-02-12 | Outpatient (CLI) | payer OTHER, MEDICARE ==
[~2025-02-12] MED LIST changes: +JARD1TAB PO
[2025-02-12 10:24] VITALS: BP 133/60; TEMP 97.8; O2SAT 94
[2025-02-12] MEDS: LIDOCAINE 1% MDV 20 ML VIAL SC SCH (10:25)
== END ==
LOC: M IRPRO 10:19
PROVIDERS: ATTEND Registered Nurse
DX: E04.1 Nontoxic single thyroid nodule (principal)

== ENCOUNTER → 2025-03-12 | Outpatient (CLI) | payer OTHER, MEDICARE ==
[2025-03-12 14:10] LABS: BASO # 0.1 10^3/uL (0.0-0.2); BASO % 0.7 % (0.0-1.0); EOS # 0.2 10^3/uL (0.0-0.5); EOS % 3.1 % (0.0-3.0); LYMPH # 1.4 10^3/uL (1.5-5.0); LYMPH % 21.2 % (24.0-44.0); MONO # 0.5 10^3/uL (0.0-0.8); MONO % 7.3 % (2.0-8.0); NEUTROPHILS # 4.5 10^3/uL (1.5-8.5); NEUTROPHILS % 67.3 % (36.0-66.0); PLATELET COUNT, AUTOMATED 278 10^3/uL (150-450)
[2025-03-12 14:17] LABS: CALCIUM LEVEL 9.4 MG/DL (8.3-10.6); CARBON DIOXIDE LEVEL 30.0 MMOL/L (20-31); CHLORIDE LEVEL 103.0 MMOL/L (98-107); CHOLESTEROL LEVEL 134.0 MG/DL (<200); CHOLESTEROL RISK RATIO 3.49 (<5); CREATININE FOR GFR 1.65 MG/DL (0.70-1.30); GLOMERULAR FILTRATION RATE 42.5 (>42); LDL CHOLESTEROL 73.3 MG/DL (<100); MAGNESIUM LEVEL 2.1 MG/DL (1.8-2.4); NON-HDL-C 95.7 MG/DL; POTASSIUM SERUM 5.2 MMOL/L (3.5-5.1); SODIUM LEVEL 140.0 MMOL/L (136-145); TRIGLYCERIDES LEVEL 112.0 MG/DL (<150)
[2025-03-12 14:19] LABS: FREE T4 1.22 NG/DL (0.89-1.76)
== END ==
LOC: M PLALAB 10:25
PROVIDERS: ATTEND Nurse Practitioner Family
DX: I50.22 Chronic systolic (congestive) heart failure (principal); I25.10 Atherosclerotic heart disease of native coronary artery without angina pectoris; I45.2 Bifascicular block